=== PATIENT | male | born 1990 | race Two or more races ===

== ENCOUNTER 2017-01-27 23:48 | Emergency (ER) | payer SELFPAY ==
[2017-01-28] MEDS ORDERED: KETOROLAC TROMETHAMINE 60 MG/2 ML VIAL ONE (00:46)
[2017-01-28] MEDS ORDERED: CLINDAMYCIN HCL 150 MG CAPSULE ONE (00:46)
[2017-01-28] MEDS ORDERED: HYDROMORPHONE HCL 1 MG/ML SYRINGE ONE (00:46)
== END 2017-01-28 01:31 | disposition home or self-care (01) ==
LOC: ED 23:48
DX: K04.7 Periapical abscess without sinus (principal); J45.909 Unspecified asthma, uncomplicated; F17.210 Nicotine dependence, cigarettes, uncomplicated